=== PATIENT | female | born 1945 | race Caucasian/White ===

== ENCOUNTER 2018-05-16 04:10 | Inpatient (IN) | payer OTHER ==
[2018-05-16] VITALS (22 sets, daily range): BP systolic 77–142; BP diastolic 45–79
[~2018-05-16] VITALS: Ht 167.6 cm; Wt 66.2 kg
--- NOTE | 2018-05-16 04:10 | NUR ---
[place] [facility] [place] AND RT AT BEDSIDE. PT PRESENTS TO THE ER ON BVM; NON-VERBAL, FLACCID; LABORED BREATHING; G-TUBE PRESENT; SINUS TACHYCARDIC; CONTRACTED; SKIN IS LOOSE, COOL AND INTACT. --PT PLACED ON SUPERVISOR ASSEMBLY ROOM; PT IN GOWN; BED IN LOWER LOCKED POSITION. PMH: CVA, DYSPHAGIA, MITRAL VALVE REPLACEMENT, PACEMAKER, ALZHIEMERS
--- NOTE | 2018-05-16 04:14 | NUR ---
RESP. DISTRESS NOTED UPON ARRIVAL TO ED, DR RICARDO INTUBATED WITHOUT PROBLEMS. PT TOLERATED WELL.
[2018-05-16] MEDS ORDERED: NACL 0.9% 500 ML IV SCH (04:18)
--- NOTE | 2018-05-16 04:22 | NUR ---
CONTACTED THE STAFF AT [facility] WHERE PT WAS A RESIDENT. SPOKE TO MAXIME RIOS RN HAZARDOUS WASTE MATERIAL TECHNICIAN REGARDING CLARIFICATION/VERIFICATION OF DOCUMENTATION FOR POLST FORM AND ADVANCE DIRECTIVE. DOCUMENT WAS NOT DATED, OR HAD NAME, PHYSICIAN LICENSE AND QUESTIONABLE SIGNITURE. MAXIME STATED SHE DID NOT HAVE THE DOCUMENT, SENT THE ORIGINAL AND PT DID NOT HAVE AN ADVANCE DIRECTIVE. ON POLST FORM, IT STATED/CHECKED OFF THERE WAS A DOCUMENT/ ADVANCE DIRECTIVE DATED ON 01/10/18. PER [facility] AND [facility], STAFF AND PHYSICIAN WAS TOLD THEY RECIEVED REPORT PT WAS A FULL CODE. MAXIME FROM [facility], DID NOT KNOW PT CODE STATUS AND WAS NOT ABLE TO CONFIRM THE DNR STATUS DUE TO LACK OF DOCUMENTATION AT HER FACILITY. PER MAXIME FROM [facility], DAUGHTER WAS ON HER WAY TO HOSPTIAL AND SHE CAN ANSWER QUESTIONS. CONTACTED EMPLOYEE COMMUNICATIONS INTERN REGARDING SITUATION AND ER MD MADE AWARE OF STATUS.
--- NOTE | 2018-05-16 04:23 | NUR ---
MAXIME LOAN COORDINATOR SPARERIBS TRIMMER GAVE CONTACT INFORMATION- BAKARI DAIGLE [phone]
--- NOTE | 2018-05-16 04:24 | NUR ---
CONTACTED DAUGHTER CHRIS FROM THE POLST DOCUMENT. STATED SISTER WAS ON HER WAY AND THE DAUGHTER THAT WAS ON HER WAY HAD POA. ELVIS SANDS MADE AWARE OF STATUS.
--- NOTE | 2018-05-16 04:30 | NUR ---
# 16 FR Woodard catheter utilizing sterile technique. Immediate return of urine noted. Bedside drainage bag placed below level of bladder. Pt tolerated procedure well.
[2018-05-16 04:41] LABS: ANION GAP 14.5 (8-16); CARBON DIOXIDE 27.3 mmol/L (21-32); CHLORIDE 105 mmol/L (98-107); CREATININE 0.9 mg/dL (0.6-1.3); GLUCOSE 357 mg/dL (74-106); POTASSIUM 3.8 mmol/L (3.5-5.1); SODIUM SERUM 143 mmol/L (136-145); UREA NITROGEN, BLOOD 13 mg/dL (7-18)
[2018-05-16] MEDS ORDERED: PIPERACILLIN/TAZOBACTAM 3.375 GM in DEXTROSE 5% 50 ML IV ONE (04:45)
[2018-05-16 04:47] LABS: ALBUMIN 3.1 g/dL (3.4-5.0); ASPARTATE AMINOTRANSFERASE 26 U/L (15-37); HEMATOCRIT 35.9 % (36-48); HEMOGLOBIN 11.3 g/dL (12.0-16.0); MEAN CORPUSCULAR HEMOGLOBIN 32 pg (27-31); MEAN CORPUSCULAR HGB CONC 32 g/dL (33-37); MEAN CORPUSCULAR VOLUME 101.2 fL (80-94); PLATELET COUNT (AUTO) 316 K/uL (140-450); RED BLOOD CELL COUNT(AUTO) 3.54 MIL/uL (4.20-5.40); RED CELL DISTRIBUTION WIDTH 15.3 % (11.6-13.7); TOTAL BILIRUBIN 0.7 mg/dL (0.0-1.0)
[2018-05-16 04:49] LABS: PROTHROMBIN TIME 18.5 secs (10.8-13.4)
--- NOTE | 2018-05-16 04:50 | NUR ---
DAUGHTER SPOKE TO ER MD REGARDING PT STATUS. DAUGHTER PROVIDED DOCUMENT FOR TEMPORARY CONSERVATORSHIP. ER MD EXPLAINED IN DETAIL THE PATIENT STATUS. DAUGHTER AT PT BEDSIDE.
--- NOTE | 2018-05-16 04:54 | NUR ---
0435 PATIENT BROUGHT IN BY PARAMEDICS BEING BAGGED WITH 100% FIO2. PATIENT WAS INTUBATED BY DR RICARDO. TUBE SIZE 7.5 AT LIPLINE 23CM. PATIENT SXNED FOR A SPUTUM SAMPLE AND SPUTUM WAS SENT TO LAB. ABG WAS DRAWN AND RESULTS GIVEN TO DR RICARDO. VENT SETTINGS ARE AC14 VT 450 PEEP 5 AND 50% FIO2. NO CHANGES MADE POST ABG.
[2018-05-16 04:58] LABS: WHITE BLOOD COUNT (AUTO) 21.6 K/uL (4.8-10.8)
[2018-05-16 04:59] LABS: EOSINOPHILS % (MANUAL) 1 % (0-4); LYMPHOCYTES % (MANUAL) 40 % (20-46); MONOCYTES % (MANUAL) 4 % (5-12)
[2018-05-16] MEDS ORDERED: PIPERACILLIN/TAZOBACTAM 3.375 GM VIAL IV ONE (04:59)
--- NOTE | 2018-05-16 05:00 | NUR ---
CRITICAL LAB VALUE: LACTIC ACID 8.0, DR. RICARDO MADE AWARE. WILL CONTINUE TO MONITOR.
[2018-05-16 05:07] LABS: APPEARANCE,URINE CLOUDY (CLEAR); BILIRUBIN,URINE NEGATIVE (NEGATIVE); BLOOD, URINE 2+ (NEGATIVE); COLOR,URINE YELLOW (YELLOW); LEUKOCYTE ESTERASE ,URINE NEGATIVE (NEGATIVE); NITRITE, URINE NEGATIVE (NEGATIVE); UGLUCOSE 1+ (NEGATIVE)
--- NOTE | 2018-05-16 05:07 | NUR ---
DAUGHTER AT BEDSIDE. UPPER DENTURES OBTAINED BY DAUGHTER.
[2018-05-16 05:17] LABS: RBC,URINE 20-50 /HPF (0-5); WBC,URINE TOO MANY TO COUNT /HPF (0-5)
[2018-05-16] MEDS ORDERED: NACL 0.9% 2,100 ML IV ONE (05:25)
[2018-05-16] MEDS ORDERED: LEVOFLOXACIN 500 MG/D5W PREMIX 100 ML IV ONE (05:25)
--- NOTE | 2018-05-16 06:35 | NUR ---
RECEIVED PT ON CARESCAPE ON DOCUMENTED SETTINGS,PTS ET TUBE SIZE 7.5 IS SECURE [address] FAST IN PL[address] BS RHONCI SX LG BLOODY\YELLOW SECRETIONS, PT IN HF QUIET VISITOR BEDSIDE ALARMS ARE ON AND FUNCTIONAL BMV HOB VENT PLUGGED INTO RED OUTLET
--- NOTE | 2018-05-16 07:15 | NUR ---
Pt report given to SEAN Campuzano. Transfer of care at this time.
[2018-05-16] MEDS ORDERED: ACETAMINOPHEN 325 MG TAB PO PRN (08:15)
[2018-05-16] MEDS ORDERED: NACL 0.9% 1,000 ML IV SCH (08:15)
[2018-05-16] MEDS ORDERED: LORazepam 2 MG/ML VIAL IM/IVP PRN ×2 (08:15→10:00)
[2018-05-16] MEDS ORDERED: MORPHINE SULFATE 2 MG/ML SYR IVP PRN (08:15)
[2018-05-16] MEDS ORDERED: DOCUSATE SODIUM 100 MG GELCAP PO PRN (08:15)
[2018-05-16] MEDS ORDERED: DEXTROSE 50% 50 ML SYR IVP PRN (08:15)
[2018-05-16] MEDS ORDERED: ONDANSETRON 4 MG/2 ML VIAL IM/IVP PRN (08:15)
[2018-05-16] MEDS ORDERED: INSULIN LISPRO SLIDING SCALE 100 UNITS/ML VIAL SUBQ PRN (08:15)
[2018-05-16] MEDS ORDERED: ALBUTEROL SULFATE/IPRATROPIU 3 ML SOL IH PRN (08:30)
--- NOTE | 2018-05-16 08:43 | NUR ---
0843 PT TAKEN TO ICU BY RN JENISE, EMT ISSA, AND RT STAFF
--- NOTE | 2018-05-16 09:00 | NUR ---
PATIENT OPENS EYES SPONTANEOUSLY, WITHDRAWS TO PAIN, INTUBATED SIZE 7.5 HOOKED TO VENTILATOR AC 15 TIDAL VOLUME 450 FIO2 50% PEEP5, CLEAR BREATH SOUNDS ON ALL LIRA, ATRIAL FIBRILLATION ON MONITOR, WITH GTUBE CLAMPED AND SITE IS DRY NO SIGNS OF INFECTION, WITH ORDER TO SWAB DRAINAGE FROM SITE AND THERE IS NONE AT THIS TIME, WILL CONTINUE TO MONITOR, SOFT ABDOMEN, NOGUERA CATHETER IN PLACE CLOUDY YELLOW URINE NOTED, PERIPHERAL LINES GAUGE 20 BOTH LEFT AND RIGH HAND, NORMAL SALINE INFUSING 100 ML/HR AT RIGHT HAND, BOTH SITES ASYMPTOMATIC, SKIN INTACT, MODERATE BLUISH DISCOLORATION AT LEFT WRIST
--- NOTE | 2018-05-16 09:01 | NUR ---
Patient will be admitted to care of DR. PARTIDA. Admited to ICU. Will go to room 1. Belongings list completed. Report to SEAN WADE.
[2018-05-16 09:07] LABS: CHOL/HDL RATIO 2.4 (1-4.5); MAGNESIUM 2.5 mg/dL (1.8-2.4); PHOSPHORUS 6.8 mg/dL (2.5-4.9); THYROID STIMULATING HORMONE 9.54 uIU/mL (0.34-3.74)
--- NOTE | 2018-05-16 09:11 | NUR ---
DECREASE FIO2 TO .35 SPO2 100
--- NOTE | 2018-05-16 09:18 | NUR ---
DR. DORMAN AT BEDSIDE
--- NOTE | 2018-05-16 10:00 | NUR ---
DR. CORRALES AT BEDSIDE
--- NOTE | 2018-05-16 11:07 | NUR ---
Engraved Roller Inspector Note: Per Horace from [facility] , patient is on a 7 day bed hold and is one of their supervisor intermediates patients. oHrace stated she is unsure if patient has an existing Advance Directive for health care and will call me back to let me know.
--- NOTE | 2018-05-16 11:20 | NUR ---
PATIENT HAS BEEN SCREENED AND CATEGORIZED HIGH NUTRITION RISK. PATIENT WILL BE SEEN WITHIN 1-2 DAYS OF ADMISSION. 05/16/18-05/17/[address]
[2018-05-16] MEDS ORDERED: PIPERACILLIN/TAZOBACTAM 3.375 GM in DEXTROSE 5% 50 ML IV SCH (12:00)
[2018-05-16] MEDS: PIPER/TAZO 3.375GM/D5W PREMIX 50 ML IV SCH ×3 (12:21→23:42)
[2018-05-16] MEDS: BLOOD GLUCOSE MONITORING 1 DEV DEV FS SCH ×3 (12:23→20:19)
[2018-05-16] MEDS: NACL 0.9% 1,000 ML IV SCH ×2 (12:24→17:11)
[2018-05-16] MEDS: HYDROcodone/APAP 5/325 MG 1 TAB TAB PO PRN (14:17)
--- NOTE | 2018-05-16 15:36 | NUR ---
05/16/18 RD INITIAL ASSESSMENT COMPLETED PLEASE REFER TO NUTRITION ASSESSMENT UNDER CARE ACTIVITY FOR ESTIMATED NUTRITIONAL NEEDS. 1. RECOMMEND VITAL 1.2 AF @ 70 ML/HR -THIS WILL PROVIDE 1680 ML OF VOLUME, 2016 KCAL AND 126 GM OF PROTEIN, WHICH MEETS 100% OF ESTIMATED KCAL NEEDS AND 100% OF ESTIMATED PROTEIN NEEDS. 2. RECOMMEND FREE WATER FLUSH [address] TO FOLLOW-UP 2-3 DAYS, HIGH RISK MARTHA MORE RD
[2018-05-16] MEDS ORDERED: METO25TA GT (15:44)
[2018-05-16] MEDS ORDERED: FURO-572 GT (15:44)
[2018-05-16] MEDS ORDERED: WARF7.5T GT (15:44)
[2018-05-16] MEDS ORDERED: ATOR20TA GT (15:44)
[2018-05-16] MEDS ORDERED: WARF6TAB GT (15:44)
[2018-05-16] MEDS ORDERED: MEMA5TAB GT (15:44)
[2018-05-16] MEDS ORDERED: FUROSEMIDE 20 MG TAB GT SCH (16:00)
[2018-05-16] MEDS ORDERED: MEMANTINE 10 MG TAB GT SCH (16:00)
[2018-05-16] MEDS ORDERED: ATORVASTATIN 20 MG TAB GT SCH (16:00)
[2018-05-16] MEDS ORDERED: CALCIUM ACETATE 667 MG TAB GT SCH (17:00)
[2018-05-16] MEDS ORDERED: WARFARIN 1 MG TAB GT SCH (17:00)
[2018-05-16] MEDS ORDERED: PANTOPRAZOLE 40 MG INJ VIAL IVP SCH (17:00)
[2018-05-16] MEDS ORDERED: DEXT 5% / NACL 0.45% 1,000 ML IV ONE (17:20)
--- NOTE | 2018-05-16 17:30 | NUR ---
ENTERAL FEEDING STOCK AVAILABLE NOW. STARTED AT 20 ML/HR. CHECKED RESIDUAL PRIOR AND THERE WAS NONE
--- NOTE | 2018-05-16 17:45 | NUR ---
PM CARE RENDERED. PATIENT TOLERATED
[2018-05-16] MEDS: ALBUTEROL SULFATE/IPRATROPIU 3 ML SOL IH SCH (19:05)
--- NOTE | 2018-05-16 19:19 | NUR ---
REPORT GIVEN TO NIGHT RN. MRSA SWAB, GTUBE SITE SWABBED AND SENT TO LAB THIS SHIFT
--- NOTE | 2018-05-16 19:22 | NUR ---
RECEIVED BEDSIDE REPORT FROM MORNING SHIFT RNIGNACIO, FOR CONTINUITY OF CARE. PT IS NONVERBAL, OPENS EYES SPONTANEOUSLY. DOES NOT APPEAR TO TRACK MOVEMENT. ETT TO VENT, ACVC FIO2=35, GT=625, RR=14, FLOW=40, PEEP=5. VITALS SIGNS HR=84, SATING 100%, RR=14, FF=300/60. LUNG SOUND CLEAR ON UPPER/LOWER BILATERAL LOBES. VAP ORAL CARE PROVIDED. BOWEL SOUND ACTIVE X4 QUADRANTS. GTUBE INTACT, NO RESIDUAL, VITALS AF AT 20CC/HR. PACED RHYTHM ON AD COPY WRITER, PT HAS PACEMAKER. INCONTINENT, NOGUERA CATHETER IN PLACE. NS AT 100CC/HR TO RIGHT HAND 20 GAUGE PIV AND 20 GAUGE PIV ON LEFT WRIST, PATENT AND INTACT. SKIN IS INTACT, NO EDEMA, NORMAL IN COLOR. FALL, ASPIRATION, AND STANDARD PRECAUTIONS MAINTAINED. PT IS DNR. HOB ELEVATED ABOVE 30 DEG. RT MIKE AT BEDSIDE TO SEE PATIENT. Addendum: 05/16/18 at 1951 by Ai Patel RN AFEBRILE, TEMP 98.5, TEMPORAL SCAN.
[2018-05-16] MEDS: MEMANTINE 10 MG TAB GT SCH (20:12)
--- NOTE | 2018-05-16 20:46 | NUR ---
LOPRESSOR HELD, DUE TO BP=90/67.
[2018-05-16] MEDS: METOPROLOL 25 MG TAB GT SCH (21:00)
--- NOTE | 2018-05-16 21:27 | NUR ---
RT HANI AT BEDSIDE, PT CURRENTLY SET AT FIO2=32%.
--- NOTE | 2018-05-16 23:06 | NUR ---
PT SLEEPING, APPEARS WITHOUT DISTRESS, REPOSITIONED. FLACC =0, HOB ABOVE 30 DEG.
[2018-05-17] VITALS (24 sets, daily range): BP systolic 91–125; BP diastolic 39–106
[2018-05-17] MEDS: HYDROcodone/APAP 5/325 MG 1 TAB TAB PO PRN (01:02)
--- NOTE | 2018-05-17 01:30 | NUR ---
RT HAND BEDSIDE TO SEE PT, FIO2=30%. NORCO GIVEN, PT REPOSITIONED, ORAL CARE PROVIDED. PT AWAKE, APPEARS TO TRACK MOVEMENT AT TIMES. REAMINS NONVERBAL. TUBE FEEDING CURRENTLY AT 40CC/HR VITALS AF. Addendum: 05/17/18 at 0131 by Ai Patel RN CORRECTION: (RT MCKEON AT BEDSIDE)
--- NOTE | 2018-05-17 03:43 | NUR ---
BED BATH, AM CARES, VAP, AND NOGUERA CATH CARE PROVIDED TO PT. TOLERATED WELL. RESIDUAL OF 50CC IN GTUBE, TUBE FEEDING REMAINS AT 40CC/HR. PT HAD SMALL BM, FORMED, DARK BROWN IN COLOR. SKIN IS INTACT/DRY. REPOSITIONED AND HOB ELEVATED.
[2018-05-17] MEDS: NACL 0.9% 1,000 ML IV SCH ×2 (05:53→16:15)
[2018-05-17] MEDS: PIPER/TAZO 3.375GM/D5W PREMIX 50 ML IV SCH ×4 (05:54→23:20)
[2018-05-17] MEDS: ALBUTEROL SULFATE/IPRATROPIU 3 ML SOL IH SCH ×3 (06:11→19:33)
--- NOTE | 2018-05-17 06:11 | NUR ---
REC'D PT ON CARESCAPE VENT SETTINGS AC 14 VT450 PEEP 30% ALARMS ON AND AUDIBLE AND AMBU BAG IS AT SIDE OF VENT AND VENT IS PLUGGED INTO RED OUTLET, NO HHN GIVEN PT SLEEPING WITH NO SIGNS OF DISTRESS NOTED AT THIS TIME, B\S ARE CLEAR BILATERALLY PT IS ORALLY INTUBATED WITH 7.5 ET TUBE SECURED WITH ANCHOR FAST AT 23 CM MIDLINE AND SKIN INTEGRITY IS INTACT, PT IS SLEEPING
--- NOTE | 2018-05-17 06:34 | NUR ---
SARAH BONILLA, FROM LAB, UPDATED ON NEW ORDERS FOR PT.
--- NOTE | 2018-05-17 06:40 | NUR ---
TUBE FEEDING INCREASED TO 50CC/HR, RESIDUAL <20ML.
[2018-05-17 06:56] LABS: BASOPHILS % (AUTO) 0.2 % (0.0-2.0); EOSINOPHILS # (AUTO) 0.1 K/uL (0-0.4); EOSINOPHILS % (AUTO) 0.8 % (0.0-4.0); HEMATOCRIT 27.9 % (36-48); HEMOGLOBIN 9.5 g/dL (12.0-16.0); LYMPHOCYTES # (AUTO) 1.4 K/uL (2.5-16.5); LYMPHOCYTES % (AUTO) 22.6 % (20.5-51.1); MEAN CORPUSCULAR HEMOGLOBIN 32 pg (27-31); MEAN CORPUSCULAR HGB CONC 34 g/dL (33-37); MEAN CORPUSCULAR VOLUME 95.7 fL (80-94); MONOCYTES # (AUTO) 0.5 K/uL (0.8-1.0); MONOCYTES % (AUTO) 7.4 % (1.7-9.3); NEUTROPHILS # (AUTO) 4.3 K/uL (1.8-7.7); PLATELET COUNT (AUTO) 189 K/uL (140-450); RED BLOOD CELL COUNT(AUTO) 2.92 MIL/uL (4.20-5.40); WHITE BLOOD COUNT (AUTO) 6.3 K/uL (4.8-10.8)
[2018-05-17 07:10] LABS: ANION GAP 12.1 (8-16); CHLORIDE 107 mmol/L (98-107); CREATININE 0.6 mg/dL (0.6-1.3); GLUCOSE 96 mg/dL (74-106); POTASSIUM 3.1 mmol/L (3.5-5.1); SODIUM SERUM 143 mmol/L (136-145); UREA NITROGEN, BLOOD 15 mg/dL (7-18)
[2018-05-17 07:18] LABS: MAGNESIUM 1.6 mg/dL (1.8-2.4); PHOSPHORUS 2.5 mg/dL (2.5-4.9)
--- NOTE | 2018-05-17 07:20 | NUR ---
RECEIVED REPORT FROM NOC RN FOR CONTINUITY OF CARE. PATIENT IS ASLEEP, EYES CLOSED, RESPONDS TO PAINFUL STIMULI. ETT TO VENT AC 14, FIO2 30%, PEEP 5 AND TV 450. LUQ G TUBE PATENT AND INTACT TO VITAL AF 50 ML/H. FC FR16 TO LIGHT DANILO COLORED URINE IN MODERATE AMOUNT. RIGHT DORSAL HAND G2O TO NS AT 100 CC/H. LEFT WRIST G20, SALINE LOCK. SKIN WARM TO TOUCH WNL, TOENAILS WNL, NO EDEMA, WITH HAIR GROWTH AND +3 BILATERAL PEDAL PULSES. NEEDS MAX ASSISTANCE IN TURNING. SAFETY MESURES IN PLACE. WILL CONTINUE TO MONITOR.
--- NOTE | 2018-05-17 07:21 | NUR ---
GAVE BEDSIDE REPORT TO MORNING SHIFT SEAN HOLLINGSWORTH.
--- NOTE | 2018-05-17 07:59 | NUR ---
DR. DORMAN IN, PLACED PATIENT ON CPAP RATE OF 15 UNTIL 10 AM. IF TOLERATED TITRATE RATE UNTIL PATIENT TOLERATES RATE OF 10, THEN DO ABG. WILL INFORM RT.
--- NOTE | 2018-05-17 08:08 | NUR ---
DR. DORMAN AT BEDSIDE FRENCH VENT SETTINGS TO CPAP 15 TITRATE TO 10 OR 8 IF PT TOLERATES THEN DO ABG
[2018-05-17] MEDS: BLOOD GLUCOSE MONITORING 1 DEV DEV FS SCH ×4 (08:20→20:03)
[2018-05-17] MEDS: FUROSEMIDE 20 MG TAB GT SCH (08:21)
[2018-05-17] MEDS: ATORVASTATIN 20 MG TAB GT SCH (08:21)
[2018-05-17] MEDS: METOPROLOL 25 MG TAB GT SCH ×2 (08:21→20:04)
--- NOTE | 2018-05-17 08:21 | NUR ---
MORNING MEDS ADMINISTERED. PATIENT TOLERATED WELL.
[2018-05-17] MEDS: PANTOPRAZOLE 40 MG INJ VIAL IVP SCH (08:22)
[2018-05-17] MEDS: LACTOBACILLUS RHAMNOSUS GG 1 EACH CAP PO SCH (08:22)
[2018-05-17] MEDS: MEMANTINE 10 MG TAB GT SCH ×2 (08:22→20:04)
--- NOTE | 2018-05-17 08:30 | NUR ---
TURNED AND REPOSITIONED AT THIS TIME. PATIENT TOLERATED PROCEDURE WELL.
--- NOTE | 2018-05-17 08:48 | NUR ---
DR DENIS MADE AWARE OF K 3.1 AND MAG 1.6. WILL FOLLOW UP WITH ORDERS
[2018-05-17] MEDS ORDERED: MAGNESIUM OXIDE 400 MG TAB GT SCH (09:00)
--- NOTE | 2018-05-17 09:17 | NUR ---
DECREASED CPAP TO 13
[2018-05-17] MEDS ORDERED: POTASSIUM CHLORIDE 40 MEQ, LIDOCAINE 1% 25 MG in NACL 0.9% 250 ML IV SCH (09:30)
[2018-05-17 10:02] LABS: PROTHROMBIN TIME 25.6 secs (10.8-13.4)
--- NOTE | 2018-05-17 10:16 | NUR ---
PATIENT'S DAUGHTERS AT BEDSIDE, UPDATED OF PATIENT'S CONDITION.
[2018-05-17] MEDS ORDERED: PROBIOTIC SCREEN 1 EA MISC MC PRN (10:45)
--- NOTE | 2018-05-17 10:54 | NUR ---
VENT CHECK, PT DID NOT TOLERATE CPAP 13 CHANGED BACK TO AC MODE AND WILL TRY AGAIN FAMILY MEMBER AT BEDSIDE
--- NOTE | 2018-05-17 11:55 | NUR ---
Wound care evaluation note: Skin assessment done with primary RN. no redness to GT Site, skin is warm , no redness, no open area. Will continue all prevention interventions.
--- NOTE | 2018-05-17 14:35 | NUR ---
Corpsman Note: I called and spoke with Horace from [facility] . I asked her if she was able to check if patient has an existing Advance Directive on file at their facility. Per Horace, they do not have an Advance Directive.
[2018-05-17] MEDS ORDERED: WARFARIN 1 MG TAB GT SCH (17:00)
[2018-05-17] MEDS: WARFARIN 5 MG TAB PO SCH (17:42)
--- NOTE | 2018-05-17 19:14 | NUR ---
REPORT GIVEN TO NOC RN FOR CONTINUITY OF CARE. PATIENT IN STABLE CONDITION.
--- NOTE | 2018-05-17 19:15 | NUR ---
RECEIVED REPORT FROM AM SHIFT. PT AOXO. RESPONDS TO TACTILE STIMULI. NONVERBAL. EYES NONTRACKING. AFEBRILE. LUNG SOUNDS CLEAR. ETT TO VENT. FIO2 30 VT 450 PEEP 5 AC 12. PACED RHYTHM ON MONITOR. ON FEEDING VITAL AF 60 ML/HR. WITH 150 ML Q 4H H20. ABD SOFT NONTENDER. BOWEL SOUNDS ACTIVE X [address] F/C IN PLACE. BLADDER NONDISTENDED. L HAND 20 G. R WRIST 20G. DRESSING INTACT. SKIN INTACT. BED IN LOWEST POSITION. SR UP X4. HOB 30. WILL CONTINUE TO MONITOR.
--- NOTE | 2018-05-17 20:15 | NUR ---
FAMILY AT BEDSIDE AT THIS TIME. BLOOD SUGAR 124 MG/DL, NO INSULIN COVERAGE REQUIRED.
--- NOTE | 2018-05-17 22:43 | NUR ---
PT RESTING QUIETLY IN BED. REPOSITIONED TO OFFLOAD PRESSURE AREAS. NO SIGNS OF ACUTE DISTRESS NOTED.
[2018-05-18] VITALS (19 sets, daily range): BP systolic 102–134; BP diastolic 48–89
--- NOTE | 2018-05-18 00:45 | NUR ---
PT RESTING QUIETLY. NO SIGNS OF ACUTE DISTRESS NOTED. WILL CONTINUE TO MONITOR.
[2018-05-18] MEDS: NACL 0.9% 1,000 ML IV SCH ×3 (01:50→21:50)
--- NOTE | 2018-05-18 04:47 | NUR ---
LAB AT BEDSIDE FOR AM DRAWS.
[2018-05-18] MEDS: PIPER/TAZO 3.375GM/D5W PREMIX 50 ML IV SCH ×3 (05:41→17:00)
--- NOTE | 2018-05-18 06:25 | NUR ---
DR. CORRALES AT BEDSIDE AT THIS TIME. UPDATED ON PTS CURRENT CONDITION. WILL CONTINUE TO FOLLOW UP ANY ADDITIONAL ORDERS.
[2018-05-18] MEDS: BLOOD GLUCOSE MONITORING 1 DEV DEV FS SCH ×4 (06:37→20:07)
[2018-05-18 06:50] LABS: BASOPHILS % (AUTO) 0.3 % (0.0-2.0); EOSINOPHILS % (AUTO) 0.8 % (0.0-4.0); HEMATOCRIT 27.7 % (36-48); HEMOGLOBIN 9.3 g/dL (12.0-16.0); LYMPHOCYTES # (AUTO) 1.3 K/uL (2.5-16.5); LYMPHOCYTES % (AUTO) 20.9 % (20.5-51.1); MEAN CORPUSCULAR HEMOGLOBIN 32 pg (27-31); MEAN CORPUSCULAR HGB CONC 34 g/dL (33-37); MEAN CORPUSCULAR VOLUME 96.4 fL (80-94); MONOCYTES # (AUTO) 0.5 K/uL (0.8-1.0); MONOCYTES % (AUTO) 8.2 % (1.7-9.3); NEUTROPHILS # (AUTO) 4.5 K/uL (1.8-7.7); NEUTROPHILS % (AUTO) 69.8 % (42.2-75.2); PLATELET COUNT (AUTO) 175 K/uL (140-450); RED BLOOD CELL COUNT(AUTO) 2.88 MIL/uL (4.20-5.40); RED CELL DISTRIBUTION WIDTH 14.3 % (11.6-13.7); WHITE BLOOD COUNT (AUTO) 6.4 K/uL (4.8-10.8)
[2018-05-18] MEDS: ALBUTEROL SULFATE/IPRATROPIU 3 ML SOL IH SCH ×3 (06:55→19:00)
--- NOTE | 2018-05-18 07:01 | NUR ---
recived pt on vent with settings as charted breath sounds present bilat rhonchi ett secure sxn pt with min amt off white secs ambu bag at bedside vent plugged into red outlet will continue to monitor pt on vent
[2018-05-18 07:20] LABS: PROTHROMBIN TIME 26.6 secs (10.8-13.4)
--- NOTE | 2018-05-18 07:22 | NUR ---
ENDORSED CARE TO INCOMING SHIFT FOR CONTINUITY OF CARE. BED IN LOWEST POSITION. SR UP X4. HOB 30. NO SIGNS OF ACUTE DISTRESS AT THIS TIME.
[2018-05-18 07:23] LABS: ANION GAP 10.5 (8-16); CARBON DIOXIDE 26.2 mmol/L (21-32); CHLORIDE 107 mmol/L (98-107); CREATININE 0.5 mg/dL (0.6-1.3); GLUCOSE 124 mg/dL (74-106); POTASSIUM 3.7 mmol/L (3.5-5.1); SODIUM SERUM 140 mmol/L (136-145); UREA NITROGEN, BLOOD 15 mg/dL (7-18)
[2018-05-18 07:29] LABS: MAGNESIUM 1.7 mg/dL (1.8-2.4); PHOSPHORUS 2.5 mg/dL (2.5-4.9)
--- NOTE | 2018-05-18 07:30 | NUR ---
RECEIVED BEDSIDE REPORT FROM GEM TECHNICIAN RN. PT IS NONVERBAL, EYES CLOSED, RESPONDS TO LIGHT PAIN, DOES NOT FOLLOW SIMPLE COMMANDS. PACED RHYTHM ON MONITOR. ETT TO VENT W/ SETTINGS: AC 12, FIO2 28%, VT 500, PEEP 5. BILATERAL LUNGS SOUND COARSE. GT IN PLACE, RECEIVING TUBE FEEDING VITAL AF AT 70 ML/HR, NO RESIDUALS NOTED. ABDOMEN SOFT, NONDISTENDED W/ ACTIVE BOWEL SOUNDS. PERIPHERAL IVS G20 TO RIGHT WRIST PATENT AND INTACT, RUNNING IVF NS AT 100 ML/HR. G20 TO LEFT HAND SALINE LOCKED. NOGUERA CATH IN PLACE DRAINING URINE TO GRAVITY DRAINAGE BAG. SCDS IN PLACE. SKIN IS DRY AND WARM TO TOUCH. PULSES PALPABLE TO ALL EXTREMITIES. HOB 30 DEGREES, BED IN LOWEST POSITION LOCKED, CALL LIGHT WITHIN REACH. WILL CONTINUE TO MONITOR.
[2018-05-18] MEDS: PANTOPRAZOLE 40 MG INJ VIAL IVP SCH (08:05)
[2018-05-18] MEDS: METOPROLOL 25 MG TAB GT SCH ×2 (08:05→20:08)
[2018-05-18] MEDS: LACTOBACILLUS RHAMNOSUS GG 1 EACH CAP PO SCH (08:05)
[2018-05-18] MEDS: FUROSEMIDE 20 MG TAB GT SCH (08:06)
[2018-05-18] MEDS: ATORVASTATIN 20 MG TAB GT SCH (08:06)
[2018-05-18] MEDS: MEMANTINE 10 MG TAB GT SCH ×2 (08:06→20:07)
--- NOTE | 2018-05-18 08:10 | NUR ---
DR. PARTIDA AND RESIDENT GROUP IN TO SEE PT. WILL FOLLOW UP ON ORDERS.
--- NOTE | 2018-05-18 08:11 | NUR ---
DR. CORRALES MADE AWARE OF MAGNESIUM LEVEL OF 1.7.
--- NOTE | 2018-05-18 08:40 | NUR ---
MEDICATIONS ADMINISTERED ORDERED. PT TOLERATED WELL.
[2018-05-18] MEDS ORDERED: MAGNESIUM OXIDE 400 MG TAB GT SCH (09:00)
--- NOTE | 2018-05-18 09:20 | NUR ---
PT'S DAUGHTER AT BEDSIDE. UPDATES GIVEN ON PT'S CONDITION. NO SIGNS OF DISTRESS NOTED AT THIS TIME.
--- NOTE | 2018-05-18 09:34 | NUR ---
placed pt on weaning parameters as cahrted cpap 5 pressure support 12 daughters bedside pt unable to respond to verble commands will continue to monitor pt on vent
--- NOTE | 2018-05-18 11:35 | NUR ---
PT STILL ON CPAP WEANING TRIAL. VITAL SIGNS STABLE, TOLERATING WELL. SPO2 98%, RR 18. RT AND DAUGHTER AT BEDSIDE. NO SIGNS OF ACUTE DISTRESS NOTED AT THIS TIME.
--- NOTE | 2018-05-18 12:10 | NUR ---
VAP ORAL CARE GIVEN. PT STILL TOLERATING CPAP TRIAL. VSS. DAUGHTER AT BEDSIDE. ALL SAFETY PRECAUTIONS IN PLACE.
--- NOTE | 2018-05-18 14:25 | NUR ---
NO CHANGE IN CONDITION AT THIS TIME. VSS. REPOSITIONED FOR COMFORT AND OFFLOAD PRESSURE AREAS. PT TOLERATED WELL.
--- NOTE | 2018-05-18 15:00 | NUR ---
DR. DORMAN IN TO SEE PT. WILL FOLLOW UP ON ORDERS.
--- NOTE | 2018-05-18 15:05 | NUR ---
PT EXTUBATED AND PLACED ON 2LPM NC PER DR PEDRAAZ PT AMAYA EXTUBATION GOOD WILL CONTINUE TO MOMITOR PT POST EXTUBATION
--- NOTE | 2018-05-18 15:05 | NUR ---
PT EXTUBATED PER DR. DORMAN. TOLERATED WELL. O2 SAT 99%, RR 30 ON 2 L OF O2 PER NC AT THIS TIME. NO S/SX OF ACUTE DISTRESS NOTED. WILL CONTINUE TO MONITOR.
[2018-05-18] MEDS: WARFARIN 5 MG TAB PO SCH (16:54)
--- NOTE | 2018-05-18 17:00 | NUR ---
S/P EXTUBATION. VITAL SIGNS STABLE. HR 70, BP 105/57, O2 99% ON 2LPM/NC, RR 22. ALL SAFETY PRECAUTIONS IN PLACE. DAUGHTER AT BEDSIDE. WILL CONTINUE TO MONITOR.
--- NOTE | 2018-05-18 18:30 | NUR ---
DR. JAFFE IN TO SEE PT. UPDATES GIVEN ON PT'S CONDITION. WILL FOLLOW UP ON ORDERS.
--- NOTE | 2018-05-18 19:20 | NUR ---
REPORT GIVEN TO RISK CONTROL REPRESENTATIVE RN FOR CONTINUITY OF CARE. PT IS IN STABLE CONDITION.
--- NOTE | 2018-05-18 19:30 | NUR ---
RECEIVED REPORT FROM MORNING RN, WILMER, FOR CONTINUITY OF CARE. VS STABLE AT THIS TIME. AFEBRILE. PT UNABLE TO MAKE NEEDS KNOWN. OPENS EYES SPONTANEOUSLY. PERRL. LUNG SOUNDS AUSCULTATED. COARSE AND CRACKLES HEARD. S1+S2 HEARD. SR/PACED RHYTHM ON MONITOR. RESPIRATIONS ARE EVEN AND UNLABORED. OXYGEN AT 2L/MIN VIA NC. ABDOMEN ROUND, SOFT AND NONDISTENDED. BS ACTIVE IN ALL QUADRANTS. GTUBE TO FEEDING. NO RESIDUAL NOTED. VITAL AF RUNNING AT 70ML/HR. NOGUERA CATHETER IN PLACE. DRAINING CLEAR AND YELLOW URINE. PT HAS PERIPHERAL IV ACCESS ON RIGHT WRIST 20G AND LEFT HAND 20G. LINES ARE PATENT, INTACT, AND ASYMPTOMATIC. HOB KEPT AT 30 DEGREES. ALL SAFETY PRECAUTIONS ARE IN PLACE. WILL CONTINUE TO MONITOR PT.
--- NOTE | 2018-05-18 20:00 | NUR ---
PT HAD 1 MODERATE BM THAT IS BROWN AND SOFT. PT TOLERATED BEING TURNED AND REPOSITIONED FAIRLY. OXYGEN SATURATION REMAINS WNL. PADS WERE CHANGED AND PT WAS REPOSITIONED.
--- NOTE | 2018-05-18 21:30 | NUR ---
CALLED DR. JAFFE TO CLARIFY CODE STATUS OF PT. CODE STATUS ORDER WAS CHANGED.
[2018-05-19] VITALS (8 sets, daily range): BP systolic 107–135; BP diastolic 48–65
[2018-05-19] MEDS: PIPER/TAZO 3.375GM/D5W PREMIX 50 ML IV SCH ×4 (00:10→17:45)
[2018-05-19] MEDS: NACL 0.9% 1,000 ML IV SCH (00:13)
--- NOTE | 2018-05-19 00:15 | NUR ---
PT TURNED AND REPOSITIONED. TOLERATED FAIRLY. PT'S COUGH SOUNDED WET AND CRACKLES WAS AUSCULTATED. NS RUNNING AT 100ML/HR. CALLED DR. JAFFE TO NOTIFY HIM AND GOT AN ORDER TO DECREASE IVF TO 40ML/HR. WILL CONTINUE TO MONITOR PT.
--- NOTE | 2018-05-19 02:40 | NUR ---
NO FURTHER CHANGE IN PT'S CONDITION AT THIS TIME. VS REMAINS STABLE. RESPIRATIONS ARE EVEN AND UNLABORED. PT DOES NOT APPEAR TO BE EXPERIENCING ANY DISCOMFORT AT THIS TIME. WILL CONTINUE TO MONITOR.
--- NOTE | 2018-05-19 04:50 | NUR ---
PT WAS TURNED AND REPOSITIONED. HAD 1 BM THAT IS SOFT AND BROWN IN COLOR. PT TOLERATED BEING TURNED FAIRLY. VS REMAINS STABLE. OXYGEN SATURATION WNL. PT STILL COUGHS OCCASIONALLY. HOB AT 30 DEGREES. GTUBE REMAINS TO HAVE NO RESIDUAL ASPIRATED. WILL CONTINUE TO MONITOR PT.
[2018-05-19 06:40] LABS: ANION GAP 8.8 (8-16); CHLORIDE 106 mmol/L (98-107); CREATININE 0.4 mg/dL (0.6-1.3); GLUCOSE 111 mg/dL (74-106); POTASSIUM 3.8 mmol/L (3.5-5.1); PROTHROMBIN TIME 23.8 secs (10.8-13.4); SODIUM SERUM 142 mmol/L (136-145); UREA NITROGEN, BLOOD 11 mg/dL (7-18)
[2018-05-19 06:46] LABS: MAGNESIUM 1.8 mg/dL (1.8-2.4); PHOSPHORUS 2.9 mg/dL (2.5-4.9)
[2018-05-19 06:47] LABS: BASOPHILS % (AUTO) 0.3 % (0.0-2.0); EOSINOPHILS # (AUTO) 0.1 K/uL (0-0.4); EOSINOPHILS % (AUTO) 1.8 % (0.0-4.0); HEMATOCRIT 30.5 % (36-48); HEMOGLOBIN 10.1 g/dL (12.0-16.0); LYMPHOCYTES # (AUTO) 1.2 K/uL (2.5-16.5); MEAN CORPUSCULAR HEMOGLOBIN 32 pg (27-31); MEAN CORPUSCULAR HGB CONC 33 g/dL (33-37); MEAN CORPUSCULAR VOLUME 96.7 fL (80-94); MONOCYTES # (AUTO) 0.5 K/uL (0.8-1.0); MONOCYTES % (AUTO) 9.2 % (1.7-9.3); NEUTROPHILS % (AUTO) 68.7 % (42.2-75.2); PLATELET COUNT (AUTO) 197 K/uL (140-450); RED BLOOD CELL COUNT(AUTO) 3.16 MIL/uL (4.20-5.40); RED CELL DISTRIBUTION WIDTH 14.4 % (11.6-13.7); WHITE BLOOD COUNT (AUTO) 5.8 K/uL (4.8-10.8)
--- NOTE | 2018-05-19 06:56 | NUR ---
RECEIVED A CALL FROM DR. CORRALES; UPDATED HER REGARDING THE PT'S CONDITION. RECEIVED NEW ORDER TO RECHECK BNP.
[2018-05-19] MEDS: BLOOD GLUCOSE MONITORING 1 DEV DEV FS SCH ×2 (07:00→11:52)
[2018-05-19] MEDS: ALBUTEROL SULFATE/IPRATROPIU 3 ML SOL IH SCH ×3 (07:01→19:30)
--- NOTE | 2018-05-19 07:15 | NUR ---
REPORT GIVEN TO MORNING RNIGNACIO, FOR CONTINUITY OF CARE. VS STABLE AT THIS TIME.
--- NOTE | 2018-05-19 07:30 | NUR ---
Patient opens eyes to light tapping, withdraws to pain, on nasal cannula O2 2l/min., SO2 >94%, with internal pacemaker showing ventricular pacing in the monitor, soft abdomen with Gtube on Vital AF 70m/hr. no residuals, with peter catheter-clear yellow urine noted in the urobag, skin intact. Periphera lines: left hand gauge 20, left forearm gauge 22- Normal saline 40ml/hr. infusing, left hand gauge 20-all sites asymptomatic. Skin intact, mild bruising at left hand
--- NOTE | 2018-05-19 08:00 | NUR ---
Dr. Wills at bedside
[2018-05-19] MEDS: LACTOBACILLUS RHAMNOSUS GG 1 EACH CAP PO SCH (08:36)
[2018-05-19] MEDS: PANTOPRAZOLE 40 MG INJ VIAL IVP SCH (08:36)
[2018-05-19] MEDS: ATORVASTATIN 20 MG TAB GT SCH (08:36)
[2018-05-19] MEDS: METOPROLOL 25 MG TAB GT SCH ×2 (08:37→23:28)
[2018-05-19] MEDS: MEMANTINE 10 MG TAB GT SCH ×2 (08:37→23:27)
[2018-05-19] MEDS: FUROSEMIDE 20 MG TAB GT SCH (08:37)
[2018-05-19] MEDS ORDERED: FUROSEMIDE 20 MG/2 ML VIAL IVP SCH ×2 (12:30→13:00)
--- NOTE | 2018-05-19 12:30 | NUR ---
received telephone orders from Dr. Wills-readback and verified
--- NOTE | 2018-05-19 14:40 | NUR ---
Cigarette Making Machine Operator Note: Per Villegas sizing sprayer Lauren she spoke with patient's family and they are not ready for hospice services at this time.
--- NOTE | 2018-05-19 15:19 | NUR ---
05/19/18 RD FOLLOW UP COMPLETED PLEASE REFER TO NUTRITION ASSESSMENT UNDER CARE ACTIVITY FOR ESTIMATED NUTRITIONAL NEEDS. 1. CONTINUE VITAL AF 1.2 AT 70 ML/HR -THIS WILL PROVIDE 1680 ML OF VOLUME, 2016 KCAL AND 126 GM OF PROTEIN, WHICH MEETS 100% OF ESTIMATE KCAL AND PROTEIN NEED. 2. CONTINUE FREE WATER FLUSH [address] TO FOLLOW-UP 2-3 DAYS, HIGH RISK MARTHA MORE RD
--- NOTE | 2018-05-19 15:21 | NUR ---
FAXED INQUIRY TO [facility] [phone]. PHONE [phone]
--- NOTE | 2018-05-19 16:00 | NUR ---
Per patient's daughter Freshta the family is not ready to decide on hospice and wants to take the patient back to [facility] after discharge
--- NOTE | 2018-05-19 16:30 | NUR ---
Patient transferred to telemetry via bed with her belongings. Patient's daughter Freshta with patient. Report given to RN Margo informed her of family wanting to take patient to [facility] if patient is for discharge and this RN cannot get a hold of Dr. Guidry at the moment
--- NOTE | 2018-05-19 17:00 | NUR ---
RECEIVED PT FROM ICU NURSE. PT IS ACCOMPANIED BY DAUGHTER RYAN. PT IS BEDBOUND AND APHASIC, UNABLE TO ANSWER OR FOLLOW COMMAND. PT IS ON 2L O2 NC, SKIN IS INTACT. PT HAS A NOGUERA CATHETER DRAINING CLEAR YELLOW URINE. IV SITES NOTED ON L HAND, 20 G, AND L FA 22 G. INFUSING NS 10 ML/HR TKO. PEG TUBE IN PLACE, RESIDUAL IS <5 ML AT THIS TIME. FEEDING PUMP IS INFUSING VITAL AF FORMULA 70 ML/HR, WITH WATER FLUSHES 50 ML Q4H. FALL PRECAUTIONS ARE IN PLACE. CALL LIGHT GIVEN WITHIN REACH. ADMITTING VS: BP 116/62, HR 74, O2 97, TEMP 98.8, RR 18.
[2018-05-19] MEDS: WARFARIN 5 MG TAB PO SCH (17:57)
--- NOTE | 2018-05-19 19:20 | NUR ---
PT ENDORSED TO HAND NAILER NURSE IN STABLE CONDITION.
--- NOTE | 2018-05-19 19:30 | NUR ---
TREATMENT NOT GIVEN AT THIS TIME. IN A CODE BLUE. NO ACUTE DISTRESS. WILL CONTINUE TO MONITOR.
--- NOTE | 2018-05-19 19:30 | NUR ---
RECEIVED ENDORSEMENT FROM REAGAN ESTRADA DAYSHIFT NURSE FOR CONTINUITY OF CARE, PT IN STABLE CONDITION.
--- NOTE | 2018-05-19 20:00 | NUR ---
PT IN LOW BED WITH ALL FALLS PRECAUTIONS IN PLACE. V/S FOLLOWS T 98.1 P 72 R 18 B/P 135/60 02 95% ON ROOM AIR. GT FEEDING RUNNING VITAL AF AT 70MLS ORDERED. NO RESIDUAL NOTED WITH GT POSITIVE FOR PLACEMENT. IV FLUIDS RUNNING N/S AT 10MLS TO KEEP VEIN OPEN. IV SITE ON LEFT FORE ARM 22 GUAGE INTACT AND FLUSHED PATENT. LEFT HAND IV SITE IS SALINE LOCKED. PT SUCTIONED X1 DUE TO COUGHING . RESPIRATORY THERAPIST CALLED REGARDING NEB TREATMENT ORDERED AT 1900. RUTHIE LUU CALLED AND SAID THAT SHE WAS NOT HER PT BUT WILL INFORM CO WORKER OF PENDING ORDER. PT BREATHING EVEN AND UNLABORED. WILLL CONTINUE TO MONITOR PT FOR RESPIRATORY ISSUES AND OR PAIN.
--- NOTE | 2018-05-19 21:30 | NUR ---
PT GIVEN DUE MEDS OF NAMENDA AND LOPRESSOR VIA G TUBE. FEEDING ALMOST COMPLETED, WILL REPLACE FEEDING ORDERED. PT TURNED, CHANGED AND REPOSITIONED. ALL FALLS PROTOCOL IN PLACE. PT HAS NO S/S OF PAIN OR DISTRESS NOTED.
[2018-05-20] VITALS: BP 130/66
--- NOTE | 2018-05-20 00:20 | NUR ---
PT IN BED NO S/S OF PAIN OR DISTRESS NOTED 900MLS OUT OF NOGUERA CATHETER. SUNDEEP HAN ORDERED. T 97.6 P 71 R 20 B/P 130/66 02 90% ON 2LITERS VIA N/C.
[2018-05-20] MEDS: PIPER/TAZO 3.375GM/D5W PREMIX 50 ML IV SCH ×3 (01:49→13:07)
--- NOTE | 2018-05-20 02:16 | NUR ---
PT TURNED , CHANGED AND REPOSITIONED LOOSE BM X1. PT NOTED HAVING RHONCI AND SOMEWHAT SHALLOW BREATHS WITH RESPIRATIONS. RT RUTHIE CALLED TPO GIVE PRN NEB. TREATMENT. RT AT BEDSIDE PROVIDING TREATMENT
--- NOTE | 2018-05-20 02:40 | NUR ---
CALLED TO BEDSIDE BY RN TO ASSESS. BREATH SOUNDS RHONCHI. PRN TX ADMINISTERED. TOLERATED TX WELL, NO ADVERSE SIDE EFFECTS. NASOTRACHEAL SUCTIONED PATIENT WITHOUT INCIDENT. SUCTIONED MODERATE AMOUNT OF THICK, CLEAR/YELLOW SECRETIONS. PLACED PATIENT BACK ON 2L NC. NO ACUTE DISTRESS NOTED AT THIS TIME. WILL CONTINUE TO MONITOR.
[2018-05-20 04:00] VITALS: BP 110/50
--- NOTE | 2018-05-20 06:41 | NUR ---
PT IN BED NO S/S OF PAIN OR DISTRESS NOTED V/S FOLLOWS T 98.1 P 88 R 18 B/P 110/50 02 98WITH 2L N/C. SUNDEEP WYATT ORDERED.
[2018-05-20] MEDS: ALBUTEROL SULFATE/IPRATROPIU 3 ML SOL IH SCH ×2 (07:00→13:00)
[2018-05-20 07:15] LABS: BASOPHILS % (AUTO) 0.3 % (0.0-2.0); EOSINOPHILS # (AUTO) 0.1 K/uL (0-0.4); EOSINOPHILS % (AUTO) 1.6 % (0.0-4.0); HEMATOCRIT 29.8 % (36-48); LYMPHOCYTES # (AUTO) 1.1 K/uL (2.5-16.5); LYMPHOCYTES % (AUTO) 16.7 % (20.5-51.1); MEAN CORPUSCULAR HEMOGLOBIN 32 pg (27-31); MEAN CORPUSCULAR HGB CONC 33 g/dL (33-37); MEAN CORPUSCULAR VOLUME 96.3 fL (80-94); MONOCYTES # (AUTO) 0.5 K/uL (0.8-1.0); MONOCYTES % (AUTO) 7.6 % (1.7-9.3); NEUTROPHILS # (AUTO) 5.1 K/uL (1.8-7.7); NEUTROPHILS % (AUTO) 73.8 % (42.2-75.2); PLATELET COUNT (AUTO) 212 K/uL (140-450); RED BLOOD CELL COUNT(AUTO) 3.09 MIL/uL (4.20-5.40); RED CELL DISTRIBUTION WIDTH 14.3 % (11.6-13.7); WHITE BLOOD COUNT (AUTO) 6.8 K/uL (4.8-10.8)
[2018-05-20 07:24] LABS: PHOSPHORUS 3.3 mg/dL (2.5-4.9); PROTHROMBIN TIME 18.5 secs (10.8-13.4)
--- NOTE | 2018-05-20 07:30 | NUR ---
RECEIVED PT FROM OCCUPATIONAL HEALTH PROFESSIONAL NURSE, CORWIN, PT IS ASLEEP, LYING ON THE BED WITH SIDE RAILS UP AND CALL LIGHT WITHIN REACH, FALL AND SAFETY PRECAUTION INITIATED, BED ALARM ACTIVATED, PT HAS AN IV LINE ON THE LEFT HAND G. 20 ON SALINE LOCK, AND ON THE LEFT FA G.22 WITH NS AT 10ML/HR INFUSING AND INTACT. PT IS APHASIC AND WITH G-TUBE IN PLACE WITH A CONTINUOUS FEEDING OF VITAL AF AT 70ML/HR, WITH WATER FLUSHING OF 150 Q4H, RN AM SHIFT NURSE, JUST STARTED THE NEW BAG NOW. PT ON O2 2L VIA NC AND RESPIRATUION IS EVEN AND NO SIGN OF DISTRESS NOTED. WILL CONTINUE TO MONITOR PT.
[2018-05-20 08:00] VITALS: BP 119/52
--- NOTE | 2018-05-20 08:15 | NUR ---
PT IS AWAKE AND LYING ON THE BED, VITAL SIGNS CHECKED DONE AND BP IS 119/52, PULSE IS80, RESPIRATION IS 20/MIN AND O2 SATURATION IS 98% ON O2 2L NC. NO SIGN OF DISTRESS NOTED AND WILL CONTINUE TO MONITOR PT.
[2018-05-20 08:18] LABS: ANION GAP 9.8 (8-16); CARBON DIOXIDE 32.2 mmol/L (21-32); CHLORIDE 100 mmol/L (98-107); CREATININE 0.5 mg/dL (0.6-1.3); GLUCOSE 96 mg/dL (74-106); SODIUM SERUM 139 mmol/L (136-145); UREA NITROGEN, BLOOD 11 mg/dL (7-18)
[2018-05-20] MEDS ORDERED: POTASSIUM CHLORIDE 40 MEQ, LIDOCAINE MPF 1% - 5 mL VIAL 25 MG in NACL 0.9% 250 ML IV SCH (10:00)
--- NOTE | 2018-05-20 10:00 | NUR ---
PT IS AWAKE, NOGUERA CATHETER IN PLACE, DAUGHTER ON THE BEDSIDE, PT WAS CLEANED AND REPOSITIONED AND MADE COMFORTABLE ON THE BED, WILL MONITOR PT.
[2018-05-20] MEDS: LACTOBACILLUS RHAMNOSUS GG 1 EACH CAP PO SCH (10:17)
[2018-05-20] MEDS: MEMANTINE 10 MG TAB GT SCH (10:18)
[2018-05-20] MEDS: ATORVASTATIN 20 MG TAB GT SCH (10:20)
[2018-05-20] MEDS: FUROSEMIDE 20 MG TAB GT SCH (10:20)
[2018-05-20] MEDS: PANTOPRAZOLE 40 MG INJ VIAL IVP SCH (10:21)
[2018-05-20] MEDS: METOPROLOL 25 MG TAB GT SCH (10:28)
--- NOTE | 2018-05-20 10:30 | NUR ---
PT IS AWAKE AND DAUGHTER ON THE BEDSIDE, MEDICATIONS WERE GIVEN VIA G-TUBE, PARAMETERS CHECKED AND NO RESIDUAL NOTED, PT TOLERATED THE MEDICATIONS AND WILL CONTINUED TO NITA MONITORED, PT'S K LEVEL IS 3 AND IS LOW, DAUGHTER WAS INFORMED THAT PT WILL BE GIVEN K RIDER, PT INFORMED TOO, AND K SUPPLEMENT WAS GIVEN VIA IVPB AND PT TOLERATED IT, WILL MONITOR PT.
--- NOTE | 2018-05-20 10:55 | NUR ---
CALLED [facility] SPOKE WITH ILEANA PT CAN GO TO ROOM 38B ARRANGED TRANSPORT WITH [facility] TIME IS 1530
[2018-05-20] MEDS ORDERED: DOCU-299 GT (11:26)
[2018-05-20] MEDS ORDERED: ALBU3SOL83 IH (11:26)
[2018-05-20] MEDS ORDERED: LACT10CA GT (11:26)
[2018-05-20] MEDS ORDERED: FAMO20TA13 GT (11:26)
[2018-05-20] MEDS ORDERED: ZOS3.375I IV (11:26)
--- NOTE | 2018-05-20 11:58 | NUR ---
CALLED [facility] [phone] TO GET AUTHORIZATION ,UNABLE TO CONTACT THEM OFFICE IS OPEN M-F
[2018-05-20 12:00] VITALS: BP 129/63
[2018-05-20] MEDS ORDERED: WARF7.5T GT (12:06)
--- NOTE | 2018-05-20 13:00 | NUR ---
NOGUERA CATHETER OF THE PT WAS REMOVED NOW, PT SHOWS NO SIGN OF DISTRESS, WILL MONITOR.
--- NOTE | 2018-05-20 13:09 | NUR ---
PT IS ASLEEP AND RESPIRATION UIS EVEN, DAUGHTER ON THE BEDSIDE, ZOSYN WAS GIVEN VIA IVPB AND PT TOLERATED IT. NO SIGN OF DISTRESS NOTED. WILL MONITOR PT.
--- NOTE | 2018-05-20 13:40 | NUR ---
CALLED [facility] AND GAVE REPORT TO SEAN ANDUJAR REGARDING THE CARE AND MEDICATIONS GIVEN TO PT AND SEAN ANDUJAR VERBALIZED UNDERSTANDING. PT IS GOING BACK TO RM 38-B UNDER THE SERVICE OF DR. HUGHES.
[2018-05-20 16:00] VITALS: BP 103/52
--- NOTE | 2018-05-20 16:15 | NUR ---
PT IS AWAKE WITH DAUGHTER ON THE BEDSIDE, VITAL SIGNS TAKEN AND BP IS 129/63, PULSE IS 69, TEMP. IS 98.1, RESPIRATION IS AT 20/ MIN ON 2L O2 NC, O2 SATURATION IS 97%, NO SIGN OF DISTRESS NOTED AND WILL MONITOR PT.
[2018-05-20 16:45] VITALS: BP 128/67
--- NOTE | 2018-05-20 16:45 | NUR ---
DISCHARGED PT VIA [facility] WITH THE DAUGHTER, HEART MONITOR REMOVED REMOVED, G-TUBE IS IN PLACE, NO DRAINAGE NOTED, IV LINE WERE PUT ON HEPLOCK, PT'S VITAL SIGNS ARE STABLE, BP IS 128/67, PULSE IS 70, O2 SATURATION IS 98%, TEMPERATURE IS 98.1 AND RESPIRATION IS 20/MIN. PT IS STABLE AT THIS TIME.
[2018-05-20] MEDS ORDERED: WARFARIN 2.5 MG TAB PO SCH (17:00)
[2018-05-20] MEDS ORDERED: WARFARIN 1 MG TAB GT SCH (17:00)
== END 2018-05-20 16:45 | DRG 720 ==
LOC: MED 04:10 → MIC 08:14 → MTU 05-19 16:50
PROVIDERS: ADMIT General Practice; ATTEND General Practice
PROC: 0BH17EZ Insertion of Endotracheal Airway into Trachea, Via Natural or Artificial Opening (ICD-10-PCS; principal; 2018-05-16)
PROC: 5A1945Z Respiratory Ventilation, 24-96 Consecutive Hours (ICD-10-PCS; 2018-05-16)
DX: A41.9 Sepsis, unspecified organism (principal); J69.0 Pneumonitis due to inhalation of food and vomit; J96.02 Acute respiratory failure with hypercapnia; I50.43 Acute on chronic combined systolic (congestive) and diastolic (congestive) heart failure; E44.0 Moderate protein-calorie malnutrition; E83.39 Other disorders of phosphorus metabolism; R13.10 Dysphagia, unspecified; I48.91 Unspecified atrial fibrillation; E83.41 Hypermagnesemia; E83.42 Hypomagnesemia; E87.2 Acidosis; N39.0 Urinary tract infection, site not specified; Z68.25 Body mass index [BMI] 25.0-25.9, adult; E78.5 Hyperlipidemia, unspecified; I11.0 Hypertensive heart disease with heart failure; Z95.2 Presence of prosthetic heart valve; Z80.9 Family history of malignant neoplasm, unspecified; G30.9 Alzheimer's disease, unspecified; F02.80 Dementia in other diseases classified elsewhere, unspecified severity, without behavioral disturbance, psychotic disturbance, mood disturbance, and anxiety; Z74.01 Bed confinement status; Z95.0 Presence of cardiac pacemaker; E02 Subclinical iodine-deficiency hypothyroidism; Z66 Do not resuscitate; R65.20 Severe sepsis without septic shock
CPT/HCPCS: 36415; 36600; 51702; 71045; 80048; 80053; 81001; 82150; 82803; 82948; 83036; 83605; 83690; 83735; 83880; 84100; 84436; 84443; 84484; 85025; 85610; 85730; 87040; 87070; 87075; 87081; 87086; 87186; 87205; 87804; 93005; 94002; 94003; 94640; 96361; 96365; 96367; 99291; C9113; J1815; J1940; J1956; J2001; J2270; J2543; J3480; J7030; J7060; J7620

== ENCOUNTER 2018-05-20 18:18 | Inpatient (IN) | payer OTHER ==
[~2018-05-20] VITALS: Ht 160 cm; Wt 71.7 kg
[~2018-05-20 18:18] MED LIST: ALBU3SOL83 IH; ATOR20TA GT; DOCU-299 GT; FAMO20TA13 GT; FURO-572 GT; LACT10CA GT; MEMA5TAB GT; METO25TA GT; WARF6TAB GT; WARF7.5T GT; ZOS3.375I IV
--- NOTE | 2018-05-20 18:19 | NUR ---
PT BIBA ALS TO BED 4
[2018-05-20 18:22] VITALS: BP 123/58
--- NOTE | 2018-05-20 18:25 | NUR ---
PT IS A 73 Y/O FEMALE BIB ALS FROM [facility] WITH C/O SOB. PER EMS, PT WAS RECENTLY DISCHARGED FROM [facility] BUT DAUGHTER REPORTED RESP DISTRESS. EMS INITIATED ALBUTEROL TREATMENT, 98% WITH O2 MASK. PT IN NO SIGNS OF PAIN AT THIS TIME. EXPIRATORY CRACKLES NOTED IN UPPER LOBES, LUNG SOUNDS DIMINISHED IN LOWER LOBES. NOTED G-TUBE AMD CARDIAC PACEMAKER. PT IN NO SIGNS OF CP, N/V/D. PT NONVERBAL AT THIS TIME. PT REPOSITIONED FOR COMFORT, BED IN LOWEST POSITION. PT IS DNR FOUND FROM POLST FORM. ER MD DR. IRCARDO NOTIFIED. WILL CONTINUE TO MONITOR. PMH: ALZHEIMER'S DISEASE, CEREBRAL INFRACTION, MUSCLE WEAKNESS, DYSPHAGIA, FALLING, GASTROSTOMY, CARDIAC PACEMAKER, PROSTHETIC HEART VALVE
--- NOTE | 2018-05-20 18:30 | NUR ---
GERIATRIC SCORE OF 5 NOTED, ER MD NOTIFIED.
[2018-05-20] MEDS ORDERED: NACL 0.9% 500 ML IV SCH (18:33)
--- NOTE | 2018-05-20 18:44 | NUR ---
XRAY AT BEDSIDE
[2018-05-20] MEDS ORDERED: ALBUTEROL SULFATE/IPRATROPIU 3 ML SOL IH ONE (18:45)
--- NOTE | 2018-05-20 18:45 | NUR ---
RT AT BEDSIDE FOR ABG
--- NOTE | 2018-05-20 19:15 | NUR ---
Pt report given to MARCOS ESTRADA. Transfer of care at this time.
[2018-05-20 19:25] LABS: BASOPHILS % (AUTO) 0.1 % (0.0-2.0); EOSINOPHILS # (AUTO) 0.1 K/uL (0-0.4); HEMATOCRIT 31.4 % (36-48); HEMOGLOBIN 10.2 g/dL (12.0-16.0); LYMPHOCYTES # (AUTO) 0.5 K/uL (2.5-16.5); LYMPHOCYTES % (AUTO) 6.7 % (20.5-51.1); MEAN CORPUSCULAR HEMOGLOBIN 32 pg (27-31); MEAN CORPUSCULAR HGB CONC 33 g/dL (33-37); MEAN CORPUSCULAR VOLUME 97.7 fL (80-94); MONOCYTES # (AUTO) 0.4 K/uL (0.8-1.0); MONOCYTES % (AUTO) 5.3 % (1.7-9.3); NEUTROPHILS % (AUTO) 86.9 % (42.2-75.2); PLATELET COUNT (AUTO) 239 K/uL (140-450); RED BLOOD CELL COUNT(AUTO) 3.21 MIL/uL (4.20-5.40); RED CELL DISTRIBUTION WIDTH 14.4 % (11.6-13.7)
[2018-05-20 19:30] LABS: APPEARANCE,URINE CLEAR (CLEAR); BILIRUBIN,URINE NEGATIVE (NEGATIVE); BLOOD, URINE 1+ (NEGATIVE); COLOR,URINE YELLOW (YELLOW); LEUKOCYTE ESTERASE ,URINE NEGATIVE (NEGATIVE); NITRITE, URINE NEGATIVE (NEGATIVE); UGLUCOSE NEGATIVE (NEGATIVE)
[2018-05-20 19:31] LABS: WBC,URINE 0-5 /HPF (0-5)
[2018-05-20 19:42] LABS: ANION GAP 7.4 (8-16); CARBON DIOXIDE 35.8 mmol/L (21-32); CHLORIDE 103 mmol/L (98-107); CREATININE 0.5 mg/dL (0.6-1.3); GLUCOSE 124 mg/dL (74-106); POTASSIUM 4.2 mmol/L (3.5-5.1); SODIUM SERUM 142 mmol/L (136-145); UREA NITROGEN, BLOOD 13 mg/dL (7-18)
[2018-05-20 19:44] LABS: PROTHROMBIN TIME 17.5 secs (10.8-13.4)
[2018-05-20 19:45] LABS: ALBUMIN 2.9 g/dL (3.4-5.0); ASPARTATE AMINOTRANSFERASE 25 U/L (15-37); TOTAL BILIRUBIN 1.2 mg/dL (0.0-1.0)
[2018-05-20] MEDS ORDERED: MORPHINE SULFATE 2 MG/ML SYR IVP PRN (21:40)
[2018-05-20] MEDS ORDERED: ONDANSETRON 4 MG/2 ML VIAL IM/IVP PRN (21:40)
[2018-05-20] MEDS ORDERED: MAGNESIUM HYDROXIDE 2400 MG/30 ML UDC GT PRN (21:40)
[2018-05-20] MEDS ORDERED: BISACODYL 10 MG SUPP RC PRN (21:40)
[2018-05-20] MEDS ORDERED: ACETAMINOPHEN 325 MG TAB GT PRN (21:40)
[2018-05-20] MEDS ORDERED: HYDROcodone/APAP 5/325 MG 1 TAB TAB GT PRN (21:40)
--- NOTE | 2018-05-20 22:15 | NUR ---
RECEIVED BEDSIDE REPORT FROM OPERATIONS ASSOCIATE. PT IS AAO X1. PT APHASIC. DAUGHTER AT BEDSIDE. PER DAUGHTER PT ONLY SPEAKS FARSI. PT ON NC 2L. NO S/S OF DISTRESS. RHONCHI HEARD BILATERALLY. PT HAS IV ON L FA 22G. PT WITH NOGUERA CATH DRAINING CLEAR YELLOW URINE. PT WITH G TUBE. PATENT. SKIN INTACT HAS SOME EXCORIATION TO JOSE MANUEL AREA. PT IS DNR. ADVANCE DIRECTIVE IN CHART. PLAN OF CARE DISCUSSED WITH PT AND FAMILY. SAFETY MEASURES ARE IN PLACE. WILL CONTINUE TO MONITOR. BED ALARM ON
[2018-05-20 22:24] VITALS: BP 124/62
--- NOTE | 2018-05-20 22:28 | NUR ---
Patient will be admitted to care of Dr. Noe . Admited to Tele Floor. Will go to room 110 A. Belongings list completed. Report to SEAN Breen, who is at the bedside, and bedside report given
[2018-05-20] MEDS ORDERED: ALBUTEROL SULFATE/IPRATROPIU 3 ML SOL IH PRN (22:55)
[2018-05-20] MEDS: NACL 0.9% 1,000 ML IV SCH (22:58)
[2018-05-20] MEDS ORDERED: DOCUSATE 100 MG/10 ML UDC GT PRN (23:05)
[2018-05-20] MEDS ORDERED: DEXTROSE 50% 50 ML SYR IVP PRN (23:20)
[2018-05-21] VITALS: BP 122/64
[2018-05-21] MEDS ORDERED: PIPERACILLIN/TAZOBACTAM 3.375 GM VIAL IV SCH
--- NOTE | 2018-05-21 | NUR ---
VITAL SIGNS ARE STABLE. NO S/S OF DISTRESS. PT SLEEPING COMFORTABLY IN BED. WILL CONTINUE TO MONITOR.
[2018-05-21] MEDS: Z-GUARD PASTE TP SCH ×2 (00:52→13:05)
[2018-05-21] MEDS: ALBUTEROL SULFATE/IPRATROPIU 3 ML SOL IH SCH ×4 (00:59→18:58)
--- NOTE | 2018-05-21 01:09 | NUR ---
PT SLEEPING COMFORTABLY IN BED. NO S/S OF DISTRESS. BED ALARM ON
[2018-05-21 03:24] LABS: BASOPHILS % (AUTO) 0.4 % (0.0-2.0); EOSINOPHILS # (AUTO) 0.1 K/uL (0-0.4); EOSINOPHILS % (AUTO) 1.4 % (0.0-4.0); HEMATOCRIT 29.9 % (36-48); HEMOGLOBIN 9.9 g/dL (12.0-16.0); LYMPHOCYTES # (AUTO) 1.2 K/uL (2.5-16.5); LYMPHOCYTES % (AUTO) 19.4 % (20.5-51.1); MEAN CORPUSCULAR HEMOGLOBIN 32 pg (27-31); MEAN CORPUSCULAR HGB CONC 33 g/dL (33-37); MEAN CORPUSCULAR VOLUME 96.6 fL (80-94); MONOCYTES # (AUTO) 0.4 K/uL (0.8-1.0); MONOCYTES % (AUTO) 7.4 % (1.7-9.3); NEUTROPHILS # (AUTO) 4.3 K/uL (1.8-7.7); NEUTROPHILS % (AUTO) 71.4 % (42.2-75.2); PLATELET COUNT (AUTO) 216 K/uL (140-450); RED CELL DISTRIBUTION WIDTH 14.5 % (11.6-13.7)
[2018-05-21 03:31] LABS: ANION GAP 11.3 (8-16); CARBON DIOXIDE 31.3 mmol/L (21-32); CHLORIDE 105 mmol/L (98-107); CREATININE 0.5 mg/dL (0.6-1.3); GLUCOSE 105 mg/dL (74-106); POTASSIUM 3.6 mmol/L (3.5-5.1); SODIUM SERUM 144 mmol/L (136-145); UREA NITROGEN, BLOOD 13 mg/dL (7-18)
[2018-05-21 03:34] LABS: MAGNESIUM 2.1 mg/dL (1.8-2.4); PHOSPHORUS 3.4 mg/dL (2.5-4.9)
[2018-05-21 04:00] VITALS: BP 99/44
--- NOTE | 2018-05-21 04:00 | NUR ---
VITAL SIGNS ARE WITHIN NORMAL LIMITS. NO S/S OF DISTRESS. ALL SAFETY MEASURES ARE IN PLACE. DAUGHTER IS AT BEDSIDE
[2018-05-21] MEDS: PIPER/TAZO 3.375GM/D5W PREMIX 50 ML IV SCH ×3 (05:30→17:44)
[2018-05-21] MEDS ORDERED: PIPERACILLIN/TAZOBACTAM 3.375 GM VIAL IV ONE (05:30)
--- NOTE | 2018-05-21 05:30 | NUR ---
ZOSYN NOW INFUSING PER ORDERS. BLOOD GLUCOSE 88. SAFETY MEASURES ARE IN PLACE. WILL CONTINUE TO MONITOR.
[2018-05-21] MEDS: BLOOD GLUCOSE MONITORING 1 DEV DEV FS SCH ×4 (05:36→20:23)
--- NOTE | 2018-05-21 07:25 | NUR ---
GAVE BEDSIDE REPORT TO CATALINA RN. PT ENDORSED IN STABLE CONDITION.
--- NOTE | 2018-05-21 07:27 | NUR ---
RECEIVED BEDSIDE REPORT FROM SHOT CORE DRILL OPERATOR HELPER NURSE. PT RESTING IN BED COMFORTABLY DAUGHTER AT BEDSIDE.
[2018-05-21 08:00] VITALS: BP 113/47
--- NOTE | 2018-05-21 08:05 | NUR ---
TOOK PTS VITAL SIGNS AND REPOSITIONED PATIENT. PTS DAUGHTER IS AT BEDSIDE. CALL LIGHT WITHIN REACH. BED LOCKED AND IN LOWEST POSITION. ALL SAFETY MEASURES IN PLACE
--- NOTE | 2018-05-21 08:17 | NUR ---
TUBE FEEDING STARTED AT 40ML/HR PER ORDER, NO RESIDUAL AT THIS TIME, PT TURNED TO RIGHT SIDE.
[2018-05-21] MEDS ORDERED: FAMOTIDINE 20 MG TAB GT SCH (09:00)
[2018-05-21] MEDS ORDERED: ASPIRIN 81 MG TAB.CHEW PO SCH (09:00)
[2018-05-21] MEDS: METOPROLOL 25 MG TAB GT SCH ×2 (09:00→20:23)
[2018-05-21] MEDS: LACTOBACILLUS RHAMNOSUS GG 1 EACH CAP GT SCH (09:39)
[2018-05-21] MEDS: FUROSEMIDE 20 MG TAB GT SCH (09:39)
[2018-05-21] MEDS: ATORVASTATIN 20 MG TAB GT SCH (09:39)
[2018-05-21] MEDS: MEMANTINE 10 MG TAB GT SCH ×2 (09:40→21:04)
[2018-05-21] MEDS: FAMOTIDINE 20 MG TAB GT SCH (09:40)
--- NOTE | 2018-05-21 09:45 | NUR ---
REPOSITIONED CLIENT. HAD NO RESIDUAL IN GTUBE. PT TOLERATED ALL MEDICATIONS ADMINISTERED THROUGH GTUBE. PTS DAUGHTER REQUESTING WARFARIN FOR PT. PTS DAUGHTER STATES SHE IS ON IT NORMALLY. WARFARIN IS IN ORDERS. ORDER PENDING. REPOSITIONED CLIENT
--- NOTE | 2018-05-21 09:51 | NUR ---
PATIENT HAS BEEN SCREENED AND CATEGORIZED HIGH NUTRITION RISK. PATIENT WILL BE SEEN WITHIN 1-2 DAYS OF ADMISSION. 05/22/18-05/23/[address]
--- NOTE | 2018-05-21 10:42 | NUR ---
[employer]ACEM[employer]ER [employer] (FORMALLY KNOWS [facility]) CALLED [phone] TO REQUEST INTERROGATION OF PACEMAKER, LOCAL REP WILL CALL US BACK.
--- NOTE | 2018-05-21 11:15 | NUR ---
[facility] CALLED, THEY WILL COME ON TUESDAY FOR PACEMAKER INTERROGATION.
--- NOTE | 2018-05-21 11:30 | NUR ---
VITALS TAKEN, BLOOD SUGAR TAKEN, NO INSULIN NEEDED PER SLIDING SCALE, PT RESTING QUIETLY, DAUGHTER AT BEDSIDE, APPEARS COMFORTABLE, NO IMMEDIATE NEEDS AT THIS TIME.
[2018-05-21 12:00] VITALS: BP 114/57
--- NOTE | 2018-05-21 14:05 | NUR ---
ROUNDED ON PT. PT IN BED SLEEPING NO APPARENT DISTRESS. DAUGHTER AT BEDSIDE
--- NOTE | 2018-05-21 14:27 | NUR ---
ASSESSED RESIDUAL IN GTUBE. NO RESIDUAL. INCREASED FEEDING TO 55ML/HR ORDERED.
[2018-05-21 16:00] VITALS: BP 109/51
--- NOTE | 2018-05-21 16:05 | NUR ---
REPOSITIONED PATIENT. DAUGHTER AT BEDSIDE. PT IN NO APPARENT DISTRESS.
[2018-05-21] MEDS ORDERED: WARFARIN 1 MG, WARFARIN 5 MG PO SCH ×2 (17:00)
--- NOTE | 2018-05-21 19:39 | NUR ---
REPORT GIVEN AT BEDSIDE TO NIGHTSHIFT NURSE. PT IN BED DAUGHTER AT BEDSIDE
--- NOTE | 2018-05-21 19:40 | NUR ---
RECEIVED BEDSIDE REPORT FROM CATALINA ESTRADA. PT APHASIC. DAUGHTER AT BEDSIDE. PT ON NC 2L. NO S/S OF DISTRESS. RHONCHI HEARD BILATERALLY. PT HAS IV ON L FA 22G INFUSING NS AT 20ML/H & L WRIST 20G PATENT AND INTACT. PT WITH NOGUERA CATH DRAINING CLEAR YELLOW URINE. PT WITH G TUBE. FEEDING JEVITY AT 55ML/H H2O 150 Q 4H. GOAL RATE FOR FEEDING IS 70ML/H WILL INCREASE RATE BY 15ML/H AT 2030. SKIN INTACT HAS SOME EXCORIATION TO JOSE MANUEL AREA. Z GUARD IS AT BEDSIDE. PT IS DNR. ADVANCE DIRECTIVE IN CHART. PLAN OF CARE DISCUSSED WITH PT AND FAMILY. SAFETY MEASURES ARE IN PLACE. WILL CONTINUE TO MONITOR. BED ALARM ON
[2018-05-21 20:00] VITALS: BP 116/60
--- NOTE | 2018-05-21 20:00 | NUR ---
PT ON NC 3L. NO S/S OF DISTRESS. PT WAS CLEANED AND REPOSITION FOR COMFORT. ANSWERED ALL QUESTIONS AND CONCERNS FROM DAUGHTER. SAFETY MEASURES ARE IN PLACE. WILL CONTINUE TO MONITOR.
--- NOTE | 2018-05-21 21:04 | NUR ---
VITAL SIGNS ARE STABLE: B/P 116/ 60 HR 76 98% ON NC 3L. LOPRESSOR HELD D/T PT RUNNING LOW NORMAL DURING DAY. PT HAD ZERO RESIDUAL. INCREASED FEEDING FROM 55ML/HR ---> 75ML/H PER ORDERS. PT TOLERATING FEEDING WELL. BLOOD GLUCOSE: 145. BED ALARM ON. WILL CONTINUE TO MONITOR.
[2018-05-21] MEDS: NACL 0.9% 1,000 ML IV SCH (21:05)
[2018-05-22] VITALS: BP 119/50
--- NOTE | 2018-05-22 | NUR ---
VITAL SIGNS ARE STABLE. NO S/S OF DISTRESS. ALL NEEDS MET AT THIS TIME.
[2018-05-22] MEDS: PIPER/TAZO 3.375GM/D5W PREMIX 50 ML IV SCH ×3 (00:23→12:48)
[2018-05-22] MEDS: ALBUTEROL SULFATE/IPRATROPIU 3 ML SOL IH SCH ×3 (00:47→12:34)
[2018-05-22] MEDS: Z-GUARD PASTE TP SCH ×2 (01:08→10:25)
--- NOTE | 2018-05-22 03:40 | NUR ---
NEW FEEDING TUBE NOW INFUSING PER ORDERS: RATE 70ML/H WATER FLUSH 150ML/Q4H. PT WITH NO RESIDUAL. WILL CONTINUE TO MONITOR.
[2018-05-22 04:00] VITALS: BP 111/47
[2018-05-22] MEDS: BLOOD GLUCOSE MONITORING 1 DEV DEV FS SCH ×2 (05:36→12:29)
[2018-05-22] MEDS: METOPROLOL 25 MG TAB GT SCH (05:48)
--- NOTE | 2018-05-22 05:50 | NUR ---
PT HAS BLOOD DRAWN AND HEART RATE INCREASED TO 140S DR TUCKER MADE AWARE. WILL ADMINISTER LOPRESSOR PER ORDERS. PT IS HAVING A PACEMAKER INTERROGATION TODAY. WILL CONTINUE TO MONITOR.
--- NOTE | 2018-05-22 05:55 | NUR ---
PT BEGAN HAVING DIFFICULTY BREATHING. RHONCHI BILATERAL. ON NC 3L. PT WITH LABORED BREATHING. RR 25. PTS WITH PACEMAKER BUT NOT PACING HR 140S O2 SAT 81%. CALLED RT. PT IS DNR.
--- NOTE | 2018-05-22 06:10 | NUR ---
RT IS AT BEDSIDE. PT WITH RHONCHI BILATERAL O2 SAT LOW 80S HEART 140S B/P 106/43. CALLED DR TUCKER WILL COME SEE PT.
--- NOTE | 2018-05-22 06:18 | NUR ---
PT RECEIVED BREATHING TREATMENT. NOW ON REBREATHER MASK AT 100%. B/P 165/69 HE 124 O2 SAT 92%. PT STILL WITH LABORED BREATHING AND DIAPHORETIC RT SUCTION PT. FEEDING STOPPED. .
--- NOTE | 2018-05-22 06:28 | NUR ---
PT STARTED HAVING DIFFICULTY BREATHING.CALLED HER DAUGHTER #[phone] DIDN'T ANSWER.LEFT MESSAGE.CALLED HER OTHER DAUGHTER #[phone] AND TALKED W/HER DAUGHTER AND TOLD HER THAT PT HAS DIFFICULTY BREATHING IF THEY WANT TO COME AND BE W/PT.
[2018-05-22] MEDS ORDERED: LORazepam 2 MG/ML VIAL IVP PRN (06:30)
[2018-05-22] MEDS ORDERED: NACL 0.9% 500 ML IV ONE (06:30)
[2018-05-22 06:35] LABS: BASOPHILS % (AUTO) 0.3 % (0.0-2.0); EOSINOPHILS # (AUTO) 0.2 K/uL (0-0.4); EOSINOPHILS % (AUTO) 2.1 % (0.0-4.0); HEMATOCRIT 31.7 % (36-48); HEMOGLOBIN 10.4 g/dL (12.0-16.0); LYMPHOCYTES % (AUTO) 44.2 % (20.5-51.1); MEAN CORPUSCULAR HEMOGLOBIN 32 pg (27-31); MEAN CORPUSCULAR HGB CONC 33 g/dL (33-37); MONOCYTES # (AUTO) 0.8 K/uL (0.8-1.0); MONOCYTES % (AUTO) 9.1 % (1.7-9.3); NEUTROPHILS % (AUTO) 44.3 % (42.2-75.2); PLATELET COUNT (AUTO) 244 K/uL (140-450); RED BLOOD CELL COUNT(AUTO) 3.27 MIL/uL (4.20-5.40); RED CELL DISTRIBUTION WIDTH 14.7 % (11.6-13.7)
[2018-05-22 06:40] LABS: ANION GAP 8.8 (8-16); CARBON DIOXIDE 33.8 mmol/L (21-32); CHLORIDE 103 mmol/L (98-107); CREATININE 0.5 mg/dL (0.6-1.3); GLUCOSE 137 mg/dL (74-106); POTASSIUM 4.6 mmol/L (3.5-5.1); SODIUM SERUM 141 mmol/L (136-145); UREA NITROGEN, BLOOD 12 mg/dL (7-18)
--- NOTE | 2018-05-22 06:40 | NUR ---
ADMINISTERED 0.5 MG OF ATIVAN IVP PER ORDERS. PT NO LONGER DIAPHORETIC. VS: 99% ON NON REBREATHER MASK RR 26 HR 116 B/P 149/75. PT IS DNR AND HOSPICE. WILL CONTINUE TO MONITOR
[2018-05-22 06:41] LABS: MAGNESIUM 2.2 mg/dL (1.8-2.4); PHOSPHORUS 3.7 mg/dL (2.5-4.9)
[2018-05-22] MEDS ORDERED: LORazepam 2 MG/ML VIAL ONE (06:45)
[2018-05-22 07:03] LABS: PROTHROMBIN TIME 14.8 secs (10.8-13.4)
--- NOTE | 2018-05-22 07:05 | NUR ---
GAVE BEDSIDE REPORT. PT REMAINS ON NRB AT 100. O2 SAT 100% B/P 136/68 HR 96 RR 24.
--- NOTE | 2018-05-22 07:06 | NUR ---
NTS GULSHAN BRAGA PT PLACED ON NRB AT 626 AND NTS AT THAT TIME ALSO SPO2 WAS 81 NOW 100
--- NOTE | 2018-05-22 07:20 | NUR ---
RECEIVED HAND OFF REPORT FROM DRUG SAFETY SCIENTIST NURSE. RT AT BEDSIDE. PT RECEIVING BREATHING TREATMENT. WILL BE BACK TO DO MY ASSESSMENT
[2018-05-22 08:00] VITALS: BP 110/50
[2018-05-22] MEDS ORDERED: ZOS3.375I IV (08:25)
--- NOTE | 2018-05-22 09:12 | NUR ---
SPOKE WITH HOLLIE,COLD ROLLING MACHINE SETTER FOR [facility]. FAXED FACE SHEET, H&P, ORDER AND MED LIST TO HER AT [phone]. FAXED ABOVE ALSO TO [facility] [phone]. I CALLED AT [facility] AND HE WILL INFORM CHERYL THAT THE PATIENT IS GOING BACK TO THEM. PHONE [phone]
--- NOTE | 2018-05-22 09:30 | NUR ---
REPOSITIONED PT IN BED. DAUGHTER AT BEDSIDE. CHANGED PT TO NASAL CANULA 5L O2. INSTEAD OF NONREBREATHER BECAUSE HER SPO2 WAS 100%
[2018-05-22] MEDS: FUROSEMIDE 20 MG TAB GT SCH (09:48)
[2018-05-22] MEDS: ATORVASTATIN 20 MG TAB GT SCH (09:48)
[2018-05-22] MEDS: FAMOTIDINE 20 MG TAB GT SCH (09:49)
[2018-05-22] MEDS: LACTOBACILLUS RHAMNOSUS GG 1 EACH CAP GT SCH (09:49)
--- NOTE | 2018-05-22 10:10 | NUR ---
[facility] NURSE CONTACTED ME. I GAVE REPORT TO DAVION
--- NOTE | 2018-05-22 10:15 | NUR ---
PT HAD A BOWEL MOVEMENT. CHANGED PT LINEN AND PERFORMED NOGUERA CARE
[2018-05-22] MEDS: MEMANTINE 10 MG TAB GT SCH (10:24)
--- NOTE | 2018-05-22 11:50 | NUR ---
MAUDE FARIACODIJAYLON FROM [facility] [employer] [facility] CONTACTED ME TO INFORM ME THAT HER INSURANCE DOESNT PARTNER WITH [facility]. I REFERRED HER TO OUR CASE MANAGEMENT. SPOKE WITH LUTHER FROM OUR CASE MANAGEMENT AND SAID THAT IT SHOULD BE OK Addendum: 05/22/18 at 1219 by Sandy Rodas RN LUTHER SAID SHE WOULD FOLLOW UP
[2018-05-22 12:00] VITALS: BP 110/44
--- NOTE | 2018-05-22 12:10 | NUR ---
SPOKE WITH CHERYL AT [facility]. SHE SAID THE PATIENT CAN GO TO ROOM [address] HUGHES. WAS TOLD BY CATALINA RN THAT [facility] CALLED HER STATING THEY ARE DENYING PAYMENT. I REFERED THE PATIENT TO CHRIST[facility]. CHERYL AT [facility] STATED THAT [facility] HAS SET UP PICKUP AT 2P.Shawn VILLALOBOS RN AWARE.
--- NOTE | 2018-05-22 12:20 | NUR ---
SPOKE WITH LUTHER FROM CASE MANAGEMENT. SHE IS IN CONTACT WITH [facility]. [facility] INFORMED L[facility]HER THAT THE TRANSPORTATION WILL BE HERE AT 2 PM FOR [place] [facility] [place] PT WILL BE IN ROOM 38B UNDER THE CARE OF DR. HUGHES
--- NOTE | 2018-05-22 12:40 | NUR ---
REPORT CALLED TO [facility], AWAITING TRANSPORTATION AROUND 1400.
--- NOTE | 2018-05-22 12:43 | NUR ---
PT WAS CHANGED TO N/C EARLIER BY RN NOW DECREASED FIO2 TO 3 L N/C SPOI2 100 DAUGHTER AT BEDSIDE
--- NOTE | 2018-05-22 13:25 | NUR ---
TRANSPORTATION HERE, REPORT GIVEN, PT DISCONNECTED FROM GT FEED, FLUSHED, IV SL'D, SITE WNL, DISCHARGE INSTRUCTIONS GIVEN AND EXPLAINED TO PT'S DAUGHTER, PT TRANSFERED TO [facility], LEFT TO [facility] AT THIS TIME
[2018-05-22] MEDS ORDERED: WARFARIN 5 MG, WARFARIN 2.5 MG PO SCH ×2 (17:00)
== END 2018-05-22 13:15 | disposition hospice, inpatient (51) | DRG 137 ==
LOC: MED 18:18 → OBSVTOIN 21:38 → MTU 21:38 → UNDODISOB 05-22 13:15
PROVIDERS: ADMIT General Practice; ATTEND General Practice
PROC: 0DH63UZ Insertion of Feeding Device into Stomach, Percutaneous Approach (ICD-10-PCS; principal; 2018-05-21)
DX: J69.0 Pneumonitis due to inhalation of food and vomit (principal); J96.21 Acute and chronic respiratory failure with hypoxia; I50.43 Acute on chronic combined systolic (congestive) and diastolic (congestive) heart failure; E44.0 Moderate protein-calorie malnutrition; R65.10 Systemic inflammatory response syndrome (SIRS) of non-infectious origin without acute organ dysfunction; R13.10 Dysphagia, unspecified; I48.91 Unspecified atrial fibrillation; I11.0 Hypertensive heart disease with heart failure; E11.9 Type 2 diabetes mellitus without complications; E02 Subclinical iodine-deficiency hypothyroidism; E78.5 Hyperlipidemia, unspecified; G30.9 Alzheimer's disease, unspecified; F02.80 Dementia in other diseases classified elsewhere, unspecified severity, without behavioral disturbance, psychotic disturbance, mood disturbance, and anxiety; K21.9 Gastro-esophageal reflux disease without esophagitis; Z79.01 Long term (current) use of anticoagulants; Z86.73 Personal history of transient ischemic attack (TIA), and cerebral infarction without residual deficits; Z95.0 Presence of cardiac pacemaker; Z95.2 Presence of prosthetic heart valve; Z79.899 Other long term (current) drug therapy; Z66 Do not resuscitate; Z74.01 Bed confinement status; Z79.4 Long term (current) use of insulin; Z68.28 Body mass index [BMI] 28.0-28.9, adult; Z51.5 Encounter for palliative care
CPT/HCPCS: 36415; 36600; 51702; 71045; 80048; 80053; 81001; 82550; 82803; 82948; 83605; 83735; 83880; 84100; 84484; 85025; 85610; 85730; 87040; 87081; 87086; 93005; 94640; 96360; 96365; 96366; 96372; 99285; G0378; J1644; J2060; J2543; J7030; J7060; J7620